=== PATIENT | male | born 1935 | race Caucasian/White ===

== ENCOUNTER 2020-07-18 21:47 | Inpatient (IN) ==
[2020-07-18 22:36] LABS: Basophils % 0.5 %; Eosinophils # 0.2 K/mcL (0.0-0.6); Eosinophils % 2.1 %; Hematocrit 43.8 % (37.5-50.1); Hemoglobin 14.2 g/dL (12.9-16.9); Immature Granulocytes % 0.2 % (0-4); Lymphocytes # 1.9 K/mcL (0.6-4.6); Lymphocytes % 23.3 %; Mean Corpuscular HGB Conc 32.4 g/dL (31.6-35.5); Mean Corpuscular Hemoglobin 31.6 pg (28.0-33.3); Mean Corpuscular Volume 97.6 fL (83.0-100.0); Mean Platelet Volume 10.6 fL (9.4-12.4); Monocytes # 0.7 K/mcL (0.0-1.3); Monocytes % 7.8 %; Neutrophils # 5.5 K/mcL (1.6-8.9); Platelet Count 232 K/mcL (140-400); Red Blood Count 4.49 M/mcL (4.19-5.50); Red Cell Distribution Width 12.9 % (11.5-14.5); Segmented Neutrophils % 66.1 %; White Blood Count 8.3 K/mcL (4.3-11.1)
[2020-07-18 22:51] LABS: Calcium 9.1 mg/dL (8.6-10.3); Potassium 4.2 mEq/L (3.5-5.1)
[2020-07-18 23:14] LABS: Bacteria,Urine Few per hpf (None-Few); Bilirubin,Urine Negative (Negative); Blood,Urine Trace (Negative); Clarity,Urine Clear (Clear); Color,Urine Yellow (Yellow); Glucose,Urine (UA) Normal (Normal); Hyaline Casts,Urine Few per lpf (None Seen); Ketones,Urine Trace mg/dL (Negative); Leukocyte Esterase,Urine Negative (Negative); Mucus,Urine Few per lpf (None-Few); Nitrite,Urine Negative (Negative); PH,Urine 5.5 pH Units (5.0-8.0); Protein,Urine Trace mg/dL (Neg-Trace); Specific Gravity,Urine 1.026 (1.010-1.025); Urobilinogen,Urine Normal (Normal); WBC,Urine 0-3 per hpf (0-3)
[2020-07-19] MEDS ORDERED: Naloxone 0.4 MG/ML INJ IVP PRN (01:12)
[2020-07-19 07:45] LABS: Hematocrit 40.8 % (37.5-50.1); Hemoglobin 13.7 g/dL (12.9-16.9); Mean Corpuscular HGB Conc 33.6 g/dL (31.6-35.5); Mean Corpuscular Hemoglobin 32.9 pg (28.0-33.3); Mean Corpuscular Volume 97.8 fL (83.0-100.0); Mean Platelet Volume 10.7 fL (9.4-12.4); Platelet Count 211 K/mcL (140-400); Red Blood Count 4.17 M/mcL (4.19-5.50); Red Cell Distribution Width 12.7 % (11.5-14.5); White Blood Count 6.1 K/mcL (4.3-11.1)
[2020-07-19] MEDS ORDERED: NIFEdipine XL (24 HR) 30 MG TAB.ER.24 PO SCH (09:00)
[2020-07-19 09:48] LABS: BUN/Creatinine Ratio 14 (6-26); Blood Urea Nitrogen 19 mg/dL (8-23); Calcium 8.8 mg/dL (8.6-10.3); Carbon Dioxide 23 mEq/L (23-29); Chloride 107 mEq/L (98-107); Glucose 88 mg/dL (70-105); Osmolality,Calculated 292 (280-300); Phosphorous 2.5 mg/dL (2.7-4.5); Potassium 3.9 mEq/L (3.5-5.1); Sodium 140 mEq/L (136-145); eGFR For African Americans > 60 (> 60); eGFR For Non-African Americans 52 (> 60)
[2020-07-19] MEDS ORDERED: Simethicone 40 MG/0.6 ML MLS IR ONE (14:43)
[2020-07-19] MEDS: 0.9 % Sodium Chloride 1,000 ML IVC SCH (16:22)
[2020-07-19] MEDS: amLODIPine 5 MG TABLET PO SCH (17:46)
[2020-07-19] MEDS: lisinopriL 10 MG TABLET PO SCH (17:46)
[2020-07-19] MEDS: *HR* Heparin 5,000 UNIT/ML VIAL SQ SCH (17:47)
[2020-07-20] MEDS: *HR* Heparin 5,000 UNIT/ML VIAL SQ SCH ×2 (06:46→15:58)
[2020-07-20] MEDS: amLODIPine 5 MG TABLET PO SCH ×2 (10:57→14:29)
[2020-07-20] MEDS: lisinopriL 10 MG TABLET PO SCH ×2 (10:57→14:28)
[2020-07-20] MEDS: 0.9 % Sodium Chloride 1,000 ML IVC SCH (15:59)
[2020-07-20 19:17] VITALS: BP 133/79
== END 2020-07-20 21:26 | DRG 392 ==
LOC: EMEROOARM 21:47 → 3NENU 21:47
PROVIDERS: ADMIT Internal Medicine; ATTEND Internal Medicine
PROC: ENDOEDS (2020-07-19 17:30)

== ENCOUNTER 2022-04-27 06:09 | Inpatient (IN) ==
[2022-04-27 08:10] LABS: Bilirubin,Urine Negative (Negative); Blood,Urine Negative (Negative); Clarity,Urine Clear (Clear); Color,Urine Light-Yellow (Yellow); Glucose,Urine (UA) Normal (Normal); Ketones,Urine Negative (Negative); Leukocyte Esterase,Urine Negative (Negative); Nitrite,Urine Negative (Negative); Protein,Urine Trace mg/dL (Neg-Trace); Specific Gravity,Urine 1.015 (1.010-1.025); Urobilinogen,Urine Normal (Normal)
[2022-04-27] MEDS ORDERED: *HR* HYDROmorphone (PF) 1 MG/ML SYRINGE IVP ONE (10:08)
[2022-04-27] MEDS ORDERED: cefTRIAXone 1,000 MG in 0.9 % Sodium Chloride 10 ML IVP ONE (10:43)
[2022-04-27] MEDS ORDERED: Naloxone 0.4 MG/ML INJ IVP PRN ×2 (11:50→17:05)
[2022-04-27] MEDS ORDERED: Ondansetron 4 MG/2 ML VIAL IVP PRN ×2 (11:50→17:05)
[2022-04-27] MEDS ORDERED: *HR* HYDROmorphone (PF) 1 MG/ML SYRINGE IVP PRN ×2 (11:53→12:36)
[2022-04-27 12:20] LABS: Basophils % 0.1 %; Hematocrit 46.8 % (37.5-50.1); Hemoglobin 15.5 g/dL (12.9-16.9); Immature Granulocytes % 0.5 % (0-4); Lymphocytes # 2.8 K/mcL (0.6-4.6); Lymphocytes % 20.5 %; Mean Corpuscular HGB Conc 33.1 g/dL (31.6-35.5); Mean Corpuscular Hemoglobin 32.4 pg (28.0-33.3); Mean Corpuscular Volume 97.7 fL (83.0-100.0); Mean Platelet Volume 10.7 fL (9.4-12.4); Monocytes # 1.3 K/mcL (0.0-1.3); Monocytes % 9.8 %; Neutrophils # 9.4 K/mcL (1.6-8.9); Platelet Count 260 K/mcL (140-400); Red Blood Count 4.79 M/mcL (4.19-5.50); Red Cell Distribution Width 12.5 % (11.5-14.5); Segmented Neutrophils % 69.1 %; White Blood Count 13.6 K/mcL (4.3-11.1)
[2022-04-27 12:35] LABS: Alanine Aminotransferase 67 Units/L (7-52); Albumin 3.9 g/dL (3.5-5.7); Albumin/Globulin Ratio 1.3 (1.1-2.2); Alkaline Phosphatase 54 Units/L (34-104); Aspartate Amino Transferase 35 Units/L (13-39); BUN/Creatinine Ratio 20 (6-26); Bilirubin,Total 1.2 mg/dL (0.3-1.0); Blood Urea Nitrogen 24 mg/dL (8-23); Calcium 9.2 mg/dL (8.6-10.3); Carbon Dioxide 28 mEq/L (23-29); Chloride 103 mEq/L (98-107); Globulin 2.9 g/dL (2.4-3.5); Glucose 84 mg/dL (70-105); Osmolality,Calculated 291 (280-300); Potassium 4.2 mEq/L (3.5-5.1); Sodium 139 mEq/L (136-145); Total Protein 6.8 g/dL (6.4-8.9); eGFR For African Americans > 60 (> 60); eGFR For Non-African Americans 58 (> 60)
[2022-04-27] MEDS ORDERED: Acetaminophen IV 1,000 MG/100 ML BAG IVPB ONE (12:36)
[2022-04-27] MEDS ORDERED: *HR* Labetalol 20 MG/4 ML SYRINGE IVP PRN (12:36)
[2022-04-27] MEDS ORDERED: Ketorolac 30 MG/ML VIAL IVP PRN (12:36)
[2022-04-27 13:40] LABS: INR 1.1; Prothrombin Time 11.8 Seconds (9.4-12.1)
[2022-04-27] MEDS ORDERED: *HR* Succinylcholine 200 MG/10 ML VIAL IVP ONE (13:56)
[2022-04-27] MEDS ORDERED: *HR* Propofol 200 MG/20 ML VIAL IVP ONE (13:56)
[2022-04-27] MEDS ORDERED: *HR* FentaNYL (PF) 100 MCG/2 ML VIAL ONE (13:56)
[2022-04-27] MEDS ORDERED: Ondansetron 4 MG/2 ML VIAL ONE (13:56)
[2022-04-27] MEDS ORDERED: Lidocaine -MPF 2% 5 ML VIAL ONE (13:56)
[2022-04-27] MEDS ORDERED: EPHEDrine 50 MG/ML VIAL ONE (14:45)
[2022-04-27] MEDS ORDERED: *HR* Heparin 5,000 UNIT/ML VIAL SQ SCH (18:00)
[2022-04-27] MEDS: *HR* Heparin 5,000 UNIT/ML VIAL SQ SCH (18:11)
[2022-04-28] MEDS: *HR* HYDROmorphone (PF) 1 MG/ML SYRINGE IVP PRN ×3 (01:40→17:23)
[2022-04-28] MEDS ORDERED: *HR* LORazepam 2 MG/ML VIAL IVP ONE (02:59)
[2022-04-28] MEDS: *HR* Heparin 5,000 UNIT/ML VIAL SQ SCH (05:03)
[2022-04-28] MEDS: Haloperidol Lactate 5 MG/ML VIAL IVP PRN ×2 (08:48→16:27)
[2022-04-28] MEDS ORDERED: cefTRIAXone 1,000 MG in 0.9 % Sodium Chloride 10 ML IVP SCH (09:00)
[2022-04-28] MEDS: Aspirin Enteric Coated 81 MG Tablet PO SCH (11:16)
[2022-04-28] MEDS: NIFEdipine XL (24 HR) 30 MG TAB.ER.24 PO SCH (11:16)
[2022-04-28] MEDS: cefTRIAXone 1,000 MG in 0.9 % Sodium Chloride 10 ML IVP SCH (11:17)
[2022-04-28] MEDS: Cholecalciferol (D-3) 1,000 UNIT (25MCG) TABLET PO SCH (11:17)
[2022-04-28] MEDS: QUEtiapine Fumarate 25 MG TABLET PO SCH ×2 (11:17→22:22)
[2022-04-29] MEDS: NIFEdipine XL (24 HR) 30 MG TAB.ER.24 PO SCH (08:34)
[2022-04-29] MEDS: QUEtiapine Fumarate 25 MG TABLET PO SCH ×2 (08:34→23:31)
[2022-04-29] MEDS: Aspirin Enteric Coated 81 MG Tablet PO SCH (08:34)
[2022-04-29] MEDS: Cholecalciferol (D-3) 1,000 UNIT (25MCG) TABLET PO SCH (08:35)
[2022-04-29] MEDS: cefTRIAXone 1,000 MG in 0.9 % Sodium Chloride 10 ML IVP SCH (08:35)
[2022-04-29 12:18] LABS: Basophils % 0.2 %; Eosinophils # 0.2 K/mcL (0.0-0.6); Hematocrit 41.9 % (37.5-50.1); Hemoglobin 14.2 g/dL (12.9-16.9); Immature Granulocytes % 0.4 % (0-4); Lymphocytes # 2.1 K/mcL (0.6-4.6); Lymphocytes % 19.1 %; Mean Corpuscular HGB Conc 33.9 g/dL (31.6-35.5); Mean Corpuscular Hemoglobin 32.7 pg (28.0-33.3); Mean Corpuscular Volume 96.5 fL (83.0-100.0); Mean Platelet Volume 10.6 fL (9.4-12.4); Monocytes # 1.2 K/mcL (0.0-1.3); Neutrophils # 7.6 K/mcL (1.6-8.9); Platelet Count 213 K/mcL (140-400); Red Blood Count 4.34 M/mcL (4.19-5.50); Red Cell Distribution Width 12.6 % (11.5-14.5); Segmented Neutrophils % 67.3 %; White Blood Count 11.2 K/mcL (4.3-11.1)
[2022-04-29 12:41] LABS: BUN/Creatinine Ratio 26 (6-26); Blood Urea Nitrogen 31 mg/dL (8-23); Calcium 8.4 mg/dL (8.6-10.3); Carbon Dioxide 24 mEq/L (23-29); Chloride 101 mEq/L (98-107); Glucose 82 mg/dL (70-105); Osmolality,Calculated 282 (280-300); Phosphorous 3.4 mg/dL (2.7-4.5); Sodium 133 mEq/L (136-145); Troponin I 0.04 ng/mL (< 0.04); eGFR For African Americans > 60 (> 60); eGFR For Non-African Americans 57 (> 60)
[2022-04-29 13:19] LABS: Magnesium 1.9 mg/dL (1.6-2.6)
[2022-04-29] MEDS: Haloperidol Lactate 5 MG/ML VIAL IVP PRN (13:45)
[2022-04-29] MEDS: *HR* HYDROmorphone (PF) 1 MG/ML SYRINGE IVP PRN (20:32)
[2022-04-30] MEDS: *HR* HYDROmorphone (PF) 1 MG/ML SYRINGE IVP PRN ×4 (00:43→21:33)
[2022-04-30] MEDS: Haloperidol Lactate 5 MG/ML VIAL IVP PRN ×2 (08:10→14:11)
[2022-04-30] MEDS: cefTRIAXone 1,000 MG in 0.9 % Sodium Chloride 10 ML IVP SCH (08:12)
[2022-04-30] MEDS: Aspirin Enteric Coated 81 MG Tablet PO SCH (08:15)
[2022-04-30] MEDS: NIFEdipine XL (24 HR) 30 MG TAB.ER.24 PO SCH (08:15)
[2022-04-30] MEDS: QUEtiapine Fumarate 25 MG TABLET PO SCH ×2 (08:15→21:34)
[2022-04-30] MEDS: Cholecalciferol (D-3) 1,000 UNIT (25MCG) TABLET PO SCH (08:16)
[2022-04-30] MEDS ORDERED: Vancomycin 1,500 MG/265 ML IV.SOLN IVPB SCH (11:00)
[2022-04-30] MEDS: Piperacillin/Tazobactam 3.375 GM in 0.9 % Sodium Chloride Mini Bag 100 ML IVPB SCH ×2 (11:53→21:33)
[2022-04-30 12:51] LABS: Basophils % 0.3 %; Eosinophils # 0.3 K/mcL (0.0-0.6); Eosinophils % 2.5 %; Hematocrit 46.2 % (37.5-50.1); Hemoglobin 15.2 g/dL (12.9-16.9); Immature Granulocytes % 0.5 % (0-4); Lymphocytes # 1.9 K/mcL (0.6-4.6); Lymphocytes % 16.3 %; Mean Corpuscular HGB Conc 32.9 g/dL (31.6-35.5); Mean Corpuscular Hemoglobin 32.5 pg (28.0-33.3); Mean Corpuscular Volume 98.7 fL (83.0-100.0); Mean Platelet Volume 10.6 fL (9.4-12.4); Monocytes # 1.3 K/mcL (0.0-1.3); Monocytes % 11.4 %; Neutrophils # 8.1 K/mcL (1.6-8.9); Platelet Count 188 K/mcL (140-400); Red Blood Count 4.68 M/mcL (4.19-5.50); Red Cell Distribution Width 12.6 % (11.5-14.5); White Blood Count 11.8 K/mcL (4.3-11.1)
[2022-04-30 12:53] LABS: Bilirubin,Urine Negative (Negative); Blood,Urine Large (Negative); Clarity,Urine Ex.Turbid (Clear); Color,Urine Brown (Yellow); Glucose,Urine (UA) Normal (Normal); Ketones,Urine 40 mg/dL (Negative); Leukocyte Esterase,Urine Small (Negative); Nitrite,Urine Negative (Negative); Protein,Urine 200 mg/dL (Neg-Trace); Specific Gravity,Urine 1.023 (1.010-1.025); Urobilinogen,Urine Normal (Normal)
[2022-04-30] MEDS: Vancomycin 1,250 MG/262.5 ML IV.SOLN IVPB SCH (12:59)
[2022-04-30 13:09] LABS: RBC,Urine TNTC per hpf (0-3)
[2022-04-30 13:13] LABS: Bacteria,Urine Present per hpf (None-Few); Budding Yeast,Urine Present per hpf (None Seen); WBC,Urine Present per hpf (0-3)
[2022-04-30 13:21] LABS: Alanine Aminotransferase 31 Units/L (7-52); Albumin 3.6 g/dL (3.5-5.7); Albumin/Globulin Ratio 1.5 (1.1-2.2); Alkaline Phosphatase 53 Units/L (34-104); Aspartate Amino Transferase 31 Units/L (13-39); BUN/Creatinine Ratio 30 (6-26); Bilirubin,Total 1.1 mg/dL (0.3-1.0); Blood Urea Nitrogen 34 mg/dL (8-23); Calcium 8.7 mg/dL (8.6-10.3); Carbon Dioxide 23 mEq/L (23-29); Chloride 101 mEq/L (98-107); Globulin 2.4 g/dL (2.4-3.5); Glucose 81 mg/dL (70-105); Osmolality,Calculated 289 (280-300); Sodium 136 mEq/L (136-145); eGFR For African Americans > 60 (> 60); eGFR For Non-African Americans > 60 (> 60)
[2022-04-30] MEDS ORDERED: Perflutren Lipid Microsphere 1.3 ML in 0.9 % Sodium Chloride 8.7 ML IVP PRN (14:17)
[2022-04-30] MEDS: Fluconazole 100 MG TABLET PO SCH (15:15)
[2022-04-30 16:55] LABS: Creatine Kinase 226 Units/L (30-223)
[2022-05-01] MEDS ORDERED: Haloperidol Lactate 5 MG/ML VIAL IM ONE (02:04)
[2022-05-01] MEDS ORDERED: *HR* HYDROmorphone (PF) 1 MG/ML SYRINGE IM ONE (02:29)
[2022-05-01] MEDS: Piperacillin/Tazobactam 3.375 GM in 0.9 % Sodium Chloride Mini Bag 100 ML IVPB SCH ×3 (03:45→17:57)
[2022-05-01] MEDS: Haloperidol Lactate 5 MG/ML VIAL IVP PRN ×2 (03:46→15:04)
[2022-05-01] MEDS ORDERED: NIFEdipine XL (24 HR) 30 MG TAB.ER.24 PO SCH (09:00)
[2022-05-01] MEDS: QUEtiapine Fumarate 25 MG TABLET PO SCH ×3 (09:59→22:41)
[2022-05-01] MEDS: Fluconazole 100 MG TABLET PO SCH (10:07)
[2022-05-01] MEDS: Cholecalciferol (D-3) 1,000 UNIT (25MCG) TABLET PO SCH (10:07)
[2022-05-01] MEDS: Aspirin Enteric Coated 81 MG Tablet PO SCH (10:16)
[2022-05-01] MEDS ORDERED: Fluconazole 100 MG TABLET PO SCH (10:30)
[2022-05-01] MEDS: Vancomycin 1,250 MG/262.5 ML IV.SOLN IVPB SCH (12:12)
[2022-05-01 13:28] LABS: Basophils % 0.1 %; Eosinophils # 0.2 K/mcL (0.0-0.6); Eosinophils % 1.4 %; Hematocrit 41.3 % (37.5-50.1); Hemoglobin 13.7 g/dL (12.9-16.9); Immature Granulocytes % 0.5 % (0-4); Lymphocytes # 1.3 K/mcL (0.6-4.6); Lymphocytes % 10.7 %; Mean Corpuscular HGB Conc 33.2 g/dL (31.6-35.5); Mean Corpuscular Hemoglobin 32.5 pg (28.0-33.3); Mean Corpuscular Volume 98.1 fL (83.0-100.0); Mean Platelet Volume 10.5 fL (9.4-12.4); Monocytes # 1.2 K/mcL (0.0-1.3); Monocytes % 9.7 %; Neutrophils # 9.3 K/mcL (1.6-8.9); Platelet Count 200 K/mcL (140-400); Red Blood Count 4.21 M/mcL (4.19-5.50); Red Cell Distribution Width 12.6 % (11.5-14.5); Segmented Neutrophils % 77.6 %
[2022-05-01 14:01] LABS: Calcium 8.4 mg/dL (8.6-10.3); Potassium 4.1 mEq/L (3.5-5.1)
[2022-05-01 14:08] LABS: Thyroid Stimulating Hormone 0.713 mcIU/mL (0.340-5.600); Troponin I 0.05 ng/mL (< 0.04)
[2022-05-01] MEDS: *HR* Heparin 5,000 UNIT/ML VIAL SQ SCH (17:56)
[2022-05-01] MEDS: *HR* HYDROmorphone (PF) 1 MG/ML SYRINGE IVP PRN (17:57)
[2022-05-01] MEDS: 0.9 % Sodium Chloride 1,000 ML IVC SCH (18:11)
[2022-05-01 19:04] LABS: Folate 12.9 ng/mL (3.0-16.0)
[2022-05-01] MEDS: Thiamine (B-1) 100 MG in 0.9 % Sodium Chloride 50 ML IVPB SCH (20:54)
[2022-05-02] MEDS: Piperacillin/Tazobactam 3.375 GM in 0.9 % Sodium Chloride Mini Bag 100 ML IVPB SCH ×2 (02:10→11:55)
[2022-05-02 03:36] LABS: Basophils % 0.3 %; Eosinophils # 0.3 K/mcL (0.0-0.6); Eosinophils % 3.1 %; Hematocrit 41.7 % (37.5-50.1); Hemoglobin 13.6 g/dL (12.9-16.9); Immature Granulocytes % 0.5 % (0-4); Lymphocytes # 1.1 K/mcL (0.6-4.6); Lymphocytes % 9.9 %; Mean Corpuscular HGB Conc 32.6 g/dL (31.6-35.5); Mean Corpuscular Volume 98.1 fL (83.0-100.0); Mean Platelet Volume 10.4 fL (9.4-12.4); Monocytes # 1.2 K/mcL (0.0-1.3); Monocytes % 11.3 %; Neutrophils # 8.1 K/mcL (1.6-8.9); Platelet Count 199 K/mcL (140-400); Red Blood Count 4.25 M/mcL (4.19-5.50); Red Cell Distribution Width 12.5 % (11.5-14.5); Segmented Neutrophils % 74.9 %; White Blood Count 10.8 K/mcL (4.3-11.1)
[2022-05-02 03:55] LABS: Calcium 8.3 mg/dL (8.6-10.3); Potassium 4.2 mEq/L (3.5-5.1)
[2022-05-02] MEDS: Haloperidol Lactate 5 MG/ML VIAL IVP PRN ×2 (04:03→11:54)
[2022-05-02] MEDS: *HR* Heparin 5,000 UNIT/ML VIAL SQ SCH ×2 (04:06→16:07)
[2022-05-02] MEDS: 0.9 % Sodium Chloride 1,000 ML IVC SCH (07:49)
[2022-05-02] MEDS: *HR* HYDROmorphone (PF) 1 MG/ML SYRINGE IVP PRN ×2 (07:52→16:07)
[2022-05-02] MEDS: Aspirin Enteric Coated 81 MG Tablet PO SCH (07:52)
[2022-05-02] MEDS: QUEtiapine Fumarate 25 MG TABLET PO SCH ×3 (07:52→20:51)
[2022-05-02] MEDS: NIFEdipine XL (24 HR) 30 MG TAB.ER.24 PO SCH (07:52)
[2022-05-02] MEDS: Cholecalciferol (D-3) 1,000 UNIT (25MCG) TABLET PO SCH (07:52)
[2022-05-02] MEDS: Thiamine (B-1) 100 MG in 0.9 % Sodium Chloride 50 ML IVPB SCH ×2 (08:06→21:13)
[2022-05-03] MEDS: *HR* Heparin 5,000 UNIT/ML VIAL SQ SCH ×2 (06:10→17:51)
[2022-05-03 06:37] LABS: Basophils % 0.2 %; Eosinophils # 0.2 K/mcL (0.0-0.6); Eosinophils % 1.9 %; Hematocrit 39.1 % (37.5-50.1); Hemoglobin 12.8 g/dL (12.9-16.9); Immature Granulocytes % 0.4 % (0-4); Lymphocytes % 8.2 %; Mean Corpuscular HGB Conc 32.7 g/dL (31.6-35.5); Mean Corpuscular Hemoglobin 32.2 pg (28.0-33.3); Mean Corpuscular Volume 98.5 fL (83.0-100.0); Mean Platelet Volume 10.5 fL (9.4-12.4); Monocytes # 1.2 K/mcL (0.0-1.3); Monocytes % 9.8 %; Platelet Count 192 K/mcL (140-400); Red Blood Count 3.97 M/mcL (4.19-5.50); Red Cell Distribution Width 12.8 % (11.5-14.5); Segmented Neutrophils % 79.5 %; White Blood Count 12.5 K/mcL (4.3-11.1)
[2022-05-03 06:58] LABS: Calcium 8.6 mg/dL (8.6-10.3); Potassium 3.8 mEq/L (3.5-5.1)
[2022-05-03] MEDS: Aspirin Enteric Coated 81 MG Tablet PO SCH (09:41)
[2022-05-03] MEDS: Cholecalciferol (D-3) 1,000 UNIT (25MCG) TABLET PO SCH (09:42)
[2022-05-03] MEDS: QUEtiapine Fumarate 25 MG TABLET PO SCH ×2 (09:42→21:09)
[2022-05-03] MEDS: NIFEdipine XL (24 HR) 30 MG TAB.ER.24 PO SCH (09:42)
[2022-05-03] MEDS: 0.9 % Sodium Chloride 1,000 ML IVC SCH ×2 (09:45→19:28)
[2022-05-03] MEDS: Thiamine (B-1) 100 MG in 0.9 % Sodium Chloride 50 ML IVPB SCH ×2 (10:00→21:09)
[2022-05-03] MEDS ORDERED: QUEtiapine Fumarate 25 MG TABLET PO SCH ×2 (15:00→21:00)
[2022-05-04 01:37] LABS: Basophils % 0.2 %; Eosinophils # 0.2 K/mcL (0.0-0.6); Hematocrit 36.1 % (37.5-50.1); Hemoglobin 11.8 g/dL (12.9-16.9); Immature Granulocytes % 0.4 % (0-4); Lymphocytes # 1.1 K/mcL (0.6-4.6); Lymphocytes % 11.8 %; Mean Corpuscular HGB Conc 32.7 g/dL (31.6-35.5); Mean Corpuscular Hemoglobin 32.5 pg (28.0-33.3); Mean Corpuscular Volume 99.4 fL (83.0-100.0); Mean Platelet Volume 9.9 fL (9.4-12.4); Monocytes # 0.9 K/mcL (0.0-1.3); Monocytes % 9.9 %; Neutrophils # 7.2 K/mcL (1.6-8.9); Platelet Count 159 K/mcL (140-400); Red Blood Count 3.63 M/mcL (4.19-5.50); Red Cell Distribution Width 12.7 % (11.5-14.5); Segmented Neutrophils % 75.7 %; White Blood Count 9.5 K/mcL (4.3-11.1)
[2022-05-04 02:34] LABS: BUN/Creatinine Ratio 38 (6-26); Blood Urea Nitrogen 46 mg/dL (8-23); Calcium 8.1 mg/dL (8.6-10.3); Carbon Dioxide 21 mEq/L (23-29); Chloride 110 mEq/L (98-107); Glucose 100 mg/dL (70-105); Osmolality,Calculated 298 (280-300); Potassium 3.6 mEq/L (3.5-5.1); Sodium 138 mEq/L (136-145); eGFR For African Americans > 60 (> 60); eGFR For Non-African Americans 57 (> 60)
[2022-05-04] MEDS: *HR* HYDROmorphone (PF) 1 MG/ML SYRINGE IVP PRN (02:39)
[2022-05-04] MEDS: Saliva Stimulant 44.3ml BOTTLE PO PRN (02:42)
[2022-05-04] MEDS: *HR* Heparin 5,000 UNIT/ML VIAL SQ SCH ×2 (05:16→17:20)
[2022-05-04] MEDS: QUEtiapine Fumarate 25 MG TABLET PO SCH ×2 (09:47→20:30)
[2022-05-04] MEDS: Cholecalciferol (D-3) 1,000 UNIT (25MCG) TABLET PO SCH (09:47)
[2022-05-04] MEDS: Aspirin Enteric Coated 81 MG Tablet PO SCH (09:47)
[2022-05-04] MEDS: Thiamine (B-1) 100 MG in 0.9 % Sodium Chloride 50 ML IVPB SCH (10:27)
[2022-05-04] MEDS ORDERED: Perflutren Lipid Microsphere 1.3 ML in 0.9 % Sodium Chloride 8.7 ML IVP PRN (12:06)
[2022-05-04] MEDS: Thiamine (B-1) 100 MG TABLET PO SCH (20:30)
[2022-05-04] MEDS: NETARSUDIL OP SCH (20:35)
[2022-05-04] MEDS: LATANOPROST OP SCH (20:35)
[2022-05-05 03:35] LABS: Basophils % 0.2 %; Eosinophils # 0.2 K/mcL (0.0-0.6); Eosinophils % 1.7 %; Hematocrit 38.2 % (37.5-50.1); Hemoglobin 12.5 g/dL (12.9-16.9); Immature Granulocytes % 0.4 % (0-4); Lymphocytes # 1.2 K/mcL (0.6-4.6); Lymphocytes % 10.5 %; Mean Corpuscular HGB Conc 32.7 g/dL (31.6-35.5); Mean Corpuscular Hemoglobin 32.6 pg (28.0-33.3); Mean Corpuscular Volume 99.5 fL (83.0-100.0); Mean Platelet Volume 10.6 fL (9.4-12.4); Monocytes # 1.1 K/mcL (0.0-1.3); Monocytes % 10.2 %; Neutrophils # 8.6 K/mcL (1.6-8.9); Platelet Count 192 K/mcL (140-400); Red Blood Count 3.84 M/mcL (4.19-5.50); Red Cell Distribution Width 12.8 % (11.5-14.5); White Blood Count 11.2 K/mcL (4.3-11.1)
[2022-05-05] MEDS: *HR* HYDROmorphone (PF) 1 MG/ML SYRINGE IVP PRN (05:16)
[2022-05-05] MEDS: *HR* Heparin 5,000 UNIT/ML VIAL SQ SCH ×2 (05:17→17:45)
[2022-05-05 05:25] LABS: BUN/Creatinine Ratio 35 (6-26); Blood Urea Nitrogen 35 mg/dL (8-23); Calcium 8.4 mg/dL (8.6-10.3); Carbon Dioxide 23 mEq/L (23-29); Chloride 108 mEq/L (98-107); Glucose 107 mg/dL (70-105); Magnesium 1.8 mg/dL (1.6-2.6); Osmolality,Calculated 296 (280-300); Potassium 3.8 mEq/L (3.5-5.1); Sodium 139 mEq/L (136-145); eGFR For African Americans > 60 (> 60); eGFR For Non-African Americans > 60 (> 60)
[2022-05-05] MEDS ORDERED: Calcium Gluconate 1gm/50mL 1 GM/50 ML BAG IVPB ONE (07:11)
[2022-05-05] MEDS: Aspirin Enteric Coated 81 MG Tablet PO SCH (10:23)
[2022-05-05] MEDS: QUEtiapine Fumarate 25 MG TABLET PO SCH ×2 (10:23→20:17)
[2022-05-05] MEDS: Magnesium Oxide 400 MG TABLET PO SCH (10:23)
[2022-05-05] MEDS: NIFEdipine XL (24 HR) 30 MG TAB.ER.24 PO SCH (10:23)
[2022-05-05] MEDS: Thiamine (B-1) 100 MG TABLET PO SCH ×2 (10:23→20:17)
[2022-05-05] MEDS: Cholecalciferol (D-3) 1,000 UNIT (25MCG) TABLET PO SCH (10:23)
[2022-05-05] MEDS: Haloperidol Lactate 5 MG/ML VIAL IVP PRN (15:27)
[2022-05-05] MEDS: NETARSUDIL OP SCH (20:33)
[2022-05-05] MEDS: LATANOPROST OP SCH (20:33)
[2022-05-06] MEDS: *HR* Heparin 5,000 UNIT/ML VIAL SQ SCH ×2 (05:29→16:27)
[2022-05-06 10:04] LABS: Basophils % 0.1 %; Eosinophils # 0.1 K/mcL (0.0-0.6); Eosinophils % 1.3 %; Hematocrit 36.8 % (37.5-50.1); Hemoglobin 12.2 g/dL (12.9-16.9); Immature Granulocytes % 0.4 % (0-4); Lymphocytes # 1.2 K/mcL (0.6-4.6); Lymphocytes % 12.7 %; Mean Corpuscular HGB Conc 33.2 g/dL (31.6-35.5); Mean Corpuscular Hemoglobin 32.1 pg (28.0-33.3); Mean Corpuscular Volume 96.8 fL (83.0-100.0); Mean Platelet Volume 10.4 fL (9.4-12.4); Monocytes # 0.8 K/mcL (0.0-1.3); Monocytes % 8.6 %; Neutrophils # 7.2 K/mcL (1.6-8.9); Platelet Count 163 K/mcL (140-400); Red Cell Distribution Width 12.3 % (11.5-14.5); Segmented Neutrophils % 76.9 %; White Blood Count 9.3 K/mcL (4.3-11.1)
[2022-05-06 10:05] LABS: VBG Ionized Calcium 1.18 mmol/L (1.15-1.35)
[2022-05-06 10:20] LABS: BUN/Creatinine Ratio 26 (6-26); Blood Urea Nitrogen 26 mg/dL (8-23); Calcium 8.2 mg/dL (8.6-10.3); Carbon Dioxide 28 mEq/L (23-29); Chloride 105 mEq/L (98-107); Glucose 92 mg/dL (70-105); Osmolality,Calculated 288 (280-300); Potassium 3.8 mEq/L (3.5-5.1); Sodium 137 mEq/L (136-145); eGFR For African Americans > 60 (> 60); eGFR For Non-African Americans > 60 (> 60)
[2022-05-06] MEDS: NIFEdipine XL (24 HR) 30 MG TAB.ER.24 PO SCH (11:49)
[2022-05-06] MEDS: Thiamine (B-1) 100 MG TABLET PO SCH ×2 (11:49→21:57)
[2022-05-06] MEDS: Magnesium Oxide 400 MG TABLET PO SCH (11:49)
[2022-05-06] MEDS: Cholecalciferol (D-3) 1,000 UNIT (25MCG) TABLET PO SCH (11:49)
[2022-05-06] MEDS: Aspirin 81 MG TAB.CHEW PO SCH (11:50)
[2022-05-06] MEDS: Aspirin Enteric Coated 81 MG Tablet PO SCH (11:51)
[2022-05-06] MEDS: QUEtiapine Fumarate 25 MG TABLET PO SCH (11:51)
[2022-05-06] MEDS ORDERED: 0.9 % Sodium Chloride 1,000 ML IVC SCH (12:30)
[2022-05-06] MEDS ORDERED: QUEtiapine Fumarate 25 MG TABLET PO SCH (21:00)
[2022-05-06] MEDS: LATANOPROST OP SCH (22:01)
[2022-05-06] MEDS: NETARSUDIL OP SCH (22:01)
[2022-05-07] MEDS: *HR* Heparin 5,000 UNIT/ML VIAL SQ SCH ×2 (03:01→16:19)
[2022-05-07] MEDS: *HR* HYDROmorphone (PF) 1 MG/ML SYRINGE IVP PRN (03:18)
[2022-05-07 08:11] LABS: Basophils % 0.2 %; Eosinophils % 2.1 %; Hematocrit 37.5 % (37.5-50.1); Hemoglobin 12.3 g/dL (12.9-16.9); Immature Granulocytes % 0.2 % (0-4); Lymphocytes # 1.4 K/mcL (0.6-4.6); Lymphocytes % 14.9 %; Mean Corpuscular HGB Conc 32.8 g/dL (31.6-35.5); Mean Corpuscular Hemoglobin 32.1 pg (28.0-33.3); Mean Corpuscular Volume 97.9 fL (83.0-100.0); Mean Platelet Volume 10.2 fL (9.4-12.4); Monocytes % 10.7 %; Neutrophils # 6.9 K/mcL (1.6-8.9); Platelet Count 164 K/mcL (140-400); Red Blood Count 3.83 M/mcL (4.19-5.50); Red Cell Distribution Width 12.6 % (11.5-14.5); Segmented Neutrophils % 71.9 %; White Blood Count 9.5 K/mcL (4.3-11.1)
[2022-05-07 08:12] LABS: Eosinophils # 0.2 K/mcL (0.0-0.6)
[2022-05-07 08:32] LABS: BUN/Creatinine Ratio 24 (6-26); Blood Urea Nitrogen 23 mg/dL (8-23); Calcium 8.1 mg/dL (8.6-10.3); Carbon Dioxide 27 mEq/L (23-29); Chloride 106 mEq/L (98-107); Glucose 96 mg/dL (70-105); Osmolality,Calculated 288 (280-300); Potassium 3.7 mEq/L (3.5-5.1); Sodium 137 mEq/L (136-145); eGFR For African Americans > 60 (> 60); eGFR For Non-African Americans > 60 (> 60)
[2022-05-07] MEDS: NIFEdipine XL (24 HR) 30 MG TAB.ER.24 PO SCH (10:17)
[2022-05-07] MEDS: Aspirin 81 MG TAB.CHEW PO SCH (10:17)
[2022-05-07] MEDS: Cholecalciferol (D-3) 1,000 UNIT (25MCG) TABLET PO SCH (10:17)
[2022-05-07] MEDS: Thiamine (B-1) 100 MG TABLET PO SCH ×2 (10:17→21:01)
[2022-05-07] MEDS: Magnesium Oxide 400 MG TABLET PO SCH (10:22)
[2022-05-07] MEDS: *HR* HYDROcodone/Acet 5/325 mg TABLET PO PRN (14:00)
[2022-05-07] MEDS: LATANOPROST OP SCH (20:59)
[2022-05-07] MEDS: NETARSUDIL OP SCH (20:59)
[2022-05-07] MEDS ORDERED: QUEtiapine Fumarate 25 MG TABLET PO SCH (21:00)
[2022-05-07] MEDS: Saliva Stimulant 44.3ml BOTTLE PO PRN (21:02)
[2022-05-08] MEDS: *HR* Heparin 5,000 UNIT/ML VIAL SQ SCH ×2 (05:09→17:13)
[2022-05-08] MEDS: Thiamine (B-1) 100 MG TABLET PO SCH ×2 (09:05→21:49)
[2022-05-08] MEDS: Magnesium Oxide 400 MG TABLET PO SCH (09:05)
[2022-05-08] MEDS: NIFEdipine XL (24 HR) 30 MG TAB.ER.24 PO SCH (09:05)
[2022-05-08] MEDS: Aspirin 81 MG TAB.CHEW PO SCH (09:06)
[2022-05-08] MEDS: Cholecalciferol (D-3) 1,000 UNIT (25MCG) TABLET PO SCH (09:06)
[2022-05-08] MEDS: *HR* HYDROcodone/Acet 5/325 mg TABLET PO PRN (10:29)
[2022-05-08] MEDS: NETARSUDIL OP SCH (21:51)
[2022-05-08] MEDS: LATANOPROST OP SCH (21:51)
[2022-05-09] MEDS: *HR* Heparin 5,000 UNIT/ML VIAL SQ SCH ×2 (05:58→16:59)
[2022-05-09] MEDS: Magnesium Oxide 400 MG TABLET PO SCH (09:32)
[2022-05-09] MEDS: Thiamine (B-1) 100 MG TABLET PO SCH ×2 (09:32→22:19)
[2022-05-09] MEDS: Aspirin 81 MG TAB.CHEW PO SCH (09:32)
[2022-05-09] MEDS: Cholecalciferol (D-3) 1,000 UNIT (25MCG) TABLET PO SCH (09:32)
[2022-05-09] MEDS: NIFEdipine XL (24 HR) 30 MG TAB.ER.24 PO SCH (09:32)
[2022-05-09 15:12] LABS: Adenovirus Not Detected (Not Detect); Bordetella Pertussis Not Detected (Not Detect); Chlamydophila pneumoniae Not Detected (Not Detect); Coronavirus 229E Not Detected (Not Detect); Coronavirus HKU1 Not Detected (Not Detect); Coronavirus NL63 Not Detected (Not Detect); Coronavirus OC43 Not Detected (Not Detect); Human Metapneumovirus Not Detected (Not Detect); Human Rhinovirus/Enterovirus Not Detected (Not Detect); Influenza A Subtype 2009 H1 Not Detected (Not Detect); Influenza B Not Detected (Not Detect); Mycoplasma pneumoniae Not Detected (Not Detect); Parainfluenza Virus 1 Not Detected (Not Detect); Parainfluenza Virus 2 Not Detected (Not Detect); Parainfluenza Virus 3 Not Detected (Not Detect); Parainfluenza Virus 4 Not Detected (Not Detect); Respiratory Syncytial Virus Not Detected (Not Detect)
[2022-05-09 15:15] LABS: SARS-CoV-2 DETECTED (Not Detect)
[2022-05-09] MEDS: LATANOPROST OP SCH (22:20)
[2022-05-09] MEDS: NETARSUDIL OP SCH (22:20)
[2022-05-10] MEDS: *HR* Heparin 5,000 UNIT/ML VIAL SQ SCH ×2 (06:44→17:25)
[2022-05-10] MEDS: Magnesium Oxide 400 MG TABLET PO SCH (10:05)
[2022-05-10] MEDS: Thiamine (B-1) 100 MG TABLET PO SCH ×2 (10:05→19:59)
[2022-05-10] MEDS: Cholecalciferol (D-3) 1,000 UNIT (25MCG) TABLET PO SCH (10:05)
[2022-05-10] MEDS: Aspirin 81 MG TAB.CHEW PO SCH (10:05)
[2022-05-10] MEDS: NIFEdipine XL (24 HR) 30 MG TAB.ER.24 PO SCH (10:05)
[2022-05-10] MEDS: *HR* HYDROcodone/Acet 5/325 mg TABLET PO PRN (19:59)
[2022-05-10] MEDS: NETARSUDIL OP SCH (20:01)
[2022-05-10] MEDS: LATANOPROST OP SCH (20:01)
[2022-05-11] MEDS: *HR* HYDROcodone/Acet 5/325 mg TABLET PO PRN ×2 (02:15→09:32)
[2022-05-11] MEDS: *HR* Heparin 5,000 UNIT/ML VIAL SQ SCH ×2 (06:15→17:26)
[2022-05-11] MEDS: Thiamine (B-1) 100 MG TABLET PO SCH ×2 (09:32→22:40)
[2022-05-11] MEDS: Aspirin 81 MG TAB.CHEW PO SCH (09:32)
[2022-05-11] MEDS: NIFEdipine XL (24 HR) 30 MG TAB.ER.24 PO SCH (09:32)
[2022-05-11] MEDS: Magnesium Oxide 400 MG TABLET PO SCH (09:32)
[2022-05-11] MEDS: Cholecalciferol (D-3) 1,000 UNIT (25MCG) TABLET PO SCH (09:32)
[2022-05-11] MEDS ORDERED: traZODone 50 MG TABLET PO PRN (10:58)
[2022-05-11] MEDS: LATANOPROST OP SCH (22:40)
[2022-05-11] MEDS: NETARSUDIL OP SCH (22:40)
[2022-05-12] MEDS: *HR* Heparin 5,000 UNIT/ML VIAL SQ SCH ×2 (04:58→17:39)
[2022-05-12] MEDS: NIFEdipine XL (24 HR) 30 MG TAB.ER.24 PO SCH (09:38)
[2022-05-12] MEDS: Cholecalciferol (D-3) 1,000 UNIT (25MCG) TABLET PO SCH (09:38)
[2022-05-12] MEDS: Magnesium Oxide 400 MG TABLET PO SCH (09:38)
[2022-05-12] MEDS: Aspirin 81 MG TAB.CHEW PO SCH (09:38)
[2022-05-12] MEDS: Thiamine (B-1) 100 MG TABLET PO SCH ×2 (09:38→21:58)
[2022-05-12] MEDS: NETARSUDIL OP SCH (21:58)
[2022-05-12] MEDS: LATANOPROST OP SCH (21:58)
[2022-05-13] MEDS: *HR* Heparin 5,000 UNIT/ML VIAL SQ SCH ×2 (06:50→17:34)
[2022-05-13] MEDS: NIFEdipine XL (24 HR) 30 MG TAB.ER.24 PO SCH ×2 (09:30→09:50)
[2022-05-13] MEDS: Thiamine (B-1) 100 MG TABLET PO SCH ×2 (09:30→20:11)
[2022-05-13] MEDS: Cholecalciferol (D-3) 1,000 UNIT (25MCG) TABLET PO SCH (09:30)
[2022-05-13] MEDS: Aspirin 81 MG TAB.CHEW PO SCH (09:31)
[2022-05-13] MEDS: Magnesium Oxide 400 MG TABLET PO SCH (09:31)
[2022-05-13] MEDS: amLODIPine 5 MG TABLET PO SCH (11:35)
[2022-05-13] MEDS: NETARSUDIL OP SCH (20:11)
[2022-05-13] MEDS: LATANOPROST OP SCH (20:11)
[2022-05-14] MEDS: *HR* Heparin 5,000 UNIT/ML VIAL SQ SCH ×2 (04:45→17:02)
[2022-05-14] MEDS: amLODIPine 5 MG TABLET PO SCH (09:13)
[2022-05-14] MEDS: Magnesium Oxide 400 MG TABLET PO SCH (09:13)
[2022-05-14] MEDS: Thiamine (B-1) 100 MG TABLET PO SCH ×2 (09:13→19:46)
[2022-05-14] MEDS: Cholecalciferol (D-3) 1,000 UNIT (25MCG) TABLET PO SCH (09:13)
[2022-05-14] MEDS: Aspirin 81 MG TAB.CHEW PO SCH (09:13)
[2022-05-14] MEDS: NETARSUDIL OP SCH (19:47)
[2022-05-14] MEDS: LATANOPROST OP SCH (19:47)
[2022-05-15] MEDS: *HR* Heparin 5,000 UNIT/ML VIAL SQ SCH ×2 (05:07→16:50)
[2022-05-15] MEDS: Magnesium Oxide 400 MG TABLET PO SCH (09:01)
[2022-05-15] MEDS: Thiamine (B-1) 100 MG TABLET PO SCH ×2 (09:02→21:42)
[2022-05-15] MEDS: Aspirin 81 MG TAB.CHEW PO SCH (09:02)
[2022-05-15] MEDS: amLODIPine 5 MG TABLET PO SCH (09:02)
[2022-05-15] MEDS: Cholecalciferol (D-3) 1,000 UNIT (25MCG) TABLET PO SCH (09:02)
[2022-05-15] MEDS: NETARSUDIL OP SCH (21:40)
[2022-05-15] MEDS: LATANOPROST OP SCH (21:40)
[2022-05-16] MEDS: *HR* Heparin 5,000 UNIT/ML VIAL SQ SCH ×2 (05:33→18:38)
[2022-05-16] MEDS: Magnesium Oxide 400 MG TABLET PO SCH (10:25)
[2022-05-16] MEDS: Cholecalciferol (D-3) 1,000 UNIT (25MCG) TABLET PO SCH (10:25)
[2022-05-16] MEDS: amLODIPine 5 MG TABLET PO SCH (10:25)
[2022-05-16] MEDS: Aspirin 81 MG TAB.CHEW PO SCH (10:25)
[2022-05-16] MEDS: Thiamine (B-1) 100 MG TABLET PO SCH ×2 (10:25→19:52)
[2022-05-16] MEDS: LATANOPROST OP SCH (19:54)
[2022-05-16] MEDS: NETARSUDIL OP SCH (19:54)
[2022-05-17] MEDS: *HR* Heparin 5,000 UNIT/ML VIAL SQ SCH ×2 (07:12→18:09)
[2022-05-17] MEDS: amLODIPine 5 MG TABLET PO SCH (08:04)
[2022-05-17] MEDS: Thiamine (B-1) 100 MG TABLET PO SCH ×2 (08:04→21:08)
[2022-05-17] MEDS: Aspirin 81 MG TAB.CHEW PO SCH (08:04)
[2022-05-17] MEDS: Cholecalciferol (D-3) 1,000 UNIT (25MCG) TABLET PO SCH (08:05)
[2022-05-17] MEDS: Magnesium Oxide 400 MG TABLET PO SCH (08:05)
[2022-05-17] MEDS: LATANOPROST OP SCH (21:09)
[2022-05-17] MEDS: NETARSUDIL OP SCH (21:09)
[2022-05-18] MEDS: *HR* Heparin 5,000 UNIT/ML VIAL SQ SCH ×2 (04:53→16:31)
[2022-05-18] MEDS: amLODIPine 5 MG TABLET PO SCH (09:24)
[2022-05-18] MEDS: Aspirin 81 MG TAB.CHEW PO SCH (09:24)
[2022-05-18] MEDS: Cholecalciferol (D-3) 1,000 UNIT (25MCG) TABLET PO SCH (09:24)
[2022-05-18] MEDS: Thiamine (B-1) 100 MG TABLET PO SCH ×2 (09:24→19:54)
[2022-05-18] MEDS: Magnesium Oxide 400 MG TABLET PO SCH (09:24)
[2022-05-18 11:49] LABS: Calcium 8.5 mg/dL (8.6-10.3); Potassium 4.3 mEq/L (3.5-5.1)
[2022-05-18] MEDS: LATANOPROST OP SCH (19:55)
[2022-05-18] MEDS: NETARSUDIL OP SCH (19:55)
[2022-05-19] MEDS: *HR* Heparin 5,000 UNIT/ML VIAL SQ SCH (04:56)
[2022-05-19 08:11] VITALS: BP 112/69; PULSE 83; TEMP 97.9; O2SAT 95
[2022-05-19] MEDS: Cholecalciferol (D-3) 1,000 UNIT (25MCG) TABLET PO SCH (09:37)
[2022-05-19] MEDS: Magnesium Oxide 400 MG TABLET PO SCH (09:37)
[2022-05-19] MEDS: Thiamine (B-1) 100 MG TABLET PO SCH (09:37)
[2022-05-19] MEDS: amLODIPine 5 MG TABLET PO SCH (09:37)
[2022-05-19] MEDS: Aspirin 81 MG TAB.CHEW PO SCH (09:37)
== END 2022-05-19 11:45 | DRG 695 ==
LOC: EMEROOARM 06:09 → 2ANU 06:09 → SUATTDRO 11:51 → 2ANU 12:13 → SUATTDRO 04-28 12:28 → 2ANU 05-09 15:21
PROVIDERS: ADMIT Internal Medicine; ATTEND Internal Medicine

== ENCOUNTER 2022-07-10 10:38 | Observation (INO) ==
[2022-07-10] MEDS ORDERED: 0.9 % Sodium Chloride 1,000 ML IVC ONE (10:56)
[2022-07-10] MEDS ORDERED: cefTRIAXone 2,000 MG in 0.9 % Sodium Chloride Mini Bag 100 ML IVPB STA (11:00)
[2022-07-10 11:13] LABS: Hematocrit 38.4 % (37.5-50.1); Hemoglobin 12.6 g/dL (12.9-16.9); Mean Corpuscular HGB Conc 32.8 g/dL (31.6-35.5); Mean Corpuscular Hemoglobin 32.1 pg (28.0-33.3); Mean Platelet Volume 10.3 fL (9.4-12.4); Platelet Count 190 K/mcL (140-400); Red Blood Count 3.92 M/mcL (4.19-5.50); Red Cell Distribution Width 14.3 % (11.5-14.5); White Blood Count 11.3 K/mcL (4.3-11.1)
[2022-07-10 11:20] LABS: Amorphous Sediment,Urine Few per hpf (None-Few); Bilirubin,Urine Negative (Negative); Blood,Urine Large (Negative); Clarity,Urine Ex.Turbid (Clear); Color,Urine Yellow (Yellow); Glucose,Urine (UA) Normal (Normal); Ketones,Urine Negative (Negative); Leukocyte Esterase,Urine Large (Negative); Mucus,Urine Moderate per lpf (None-Few); Nitrite,Urine Negative (Negative); PH,Urine 6.5 pH Units (5.0-8.0); Protein,Urine >=300 mg/dL (Neg-Trace); RBC,Urine TNTC per hpf (0-3); Specific Gravity,Urine 1.022 (1.010-1.025); WBC,Urine TNTC per hpf (0-3)
[2022-07-10 11:34] LABS: Alanine Aminotransferase 14 Units/L (7-52); Albumin 3.6 g/dL (3.5-5.7); Albumin/Globulin Ratio 1.4 (1.1-2.2); Alkaline Phosphatase 67 Units/L (34-104); Aspartate Amino Transferase 15 Units/L (13-39); BUN/Creatinine Ratio 17 (6-26); Bilirubin,Direct 0.2 mg/dL (0.0-0.2); Bilirubin,Indirect 0.9 mg/dL (0.0-1.0); Bilirubin,Total 1.1 mg/dL (0.3-1.0); Blood Urea Nitrogen 21 mg/dL (8-23); Calcium 9.1 mg/dL (8.6-10.3); Carbon Dioxide 27 mEq/L (23-29); Chloride 106 mEq/L (98-107); Globulin 2.6 g/dL (2.4-3.5); Glucose 100 mg/dL (70-105); Osmolality,Calculated 291 (280-300); Potassium 4.1 mEq/L (3.5-5.1); Sodium 139 mEq/L (136-145); Total Protein 6.2 g/dL (6.4-8.9); Troponin I < 0.03 ng/mL (< 0.04)
[2022-07-10 11:49] LABS: Influenza A PCR Negative (Negative); Influenza B PCR Negative (Negative); Resp. Syncytial Virus PCR Negative (Negative)
[2022-07-10 11:50] LABS: SARS-CoV-2 by PCR (In House) Positive (Negative)
[2022-07-10] MEDS ORDERED: Ondansetron 4 MG/2 ML VIAL IVP PRN (14:10)
[2022-07-10] MEDS ORDERED: Acetaminophen 325 MG TABLET PO PRN (14:10)
[2022-07-10] MEDS ORDERED: Mag Hydrox/Al Hydrox/Simeth 30 ML UDC PO PRN (14:10)
[2022-07-10] MEDS ORDERED: Naloxone 0.4 MG/ML INJ IVP PRN (14:10)
[2022-07-10] MEDS ORDERED: MOM Conc 10 ML UD.LIQ PO PRN (14:10)
[2022-07-10] MEDS ORDERED: Hyoscyamine SL 0.125 MG TAB.SUBL SL PRN (17:20)
[2022-07-10] MEDS: *HR* Heparin 5,000 UNIT/ML VIAL SQ SCH (17:38)
[2022-07-11 02:55] LABS: Hematocrit 33.1 % (37.5-50.1); Mean Corpuscular Hemoglobin 31.5 pg (28.0-33.3); Mean Corpuscular Volume 98.5 fL (83.0-100.0); Mean Platelet Volume 10.7 fL (9.4-12.4); Platelet Count 170 K/mcL (140-400); Red Blood Count 3.36 M/mcL (4.19-5.50); Red Cell Distribution Width 13.9 % (11.5-14.5); White Blood Count 8.3 K/mcL (4.3-11.1)
[2022-07-11 03:03] LABS: Hemoglobin 10.6 g/dL (12.9-16.9)
[2022-07-11 03:07] VITALS: PULSE 57; O2SAT 98
[2022-07-11 03:14] LABS: Calcium 8.1 mg/dL (8.6-10.3); Magnesium 1.9 mg/dL (1.6-2.6); Potassium 3.9 mEq/L (3.5-5.1)
[2022-07-11] MEDS: *HR* Heparin 5,000 UNIT/ML VIAL SQ SCH (06:45)
[2022-07-11] MEDS ORDERED: BRIMONIDINE TARTRATE LEFT EYE SCH (08:15)
[2022-07-11] MEDS ORDERED: TIMOLOL LEFT EYE SCH (08:15)
[2022-07-11] MEDS ORDERED: [UNRECOGNIZED DRUG - OTHER] LEFT EYE SCH (08:15)
[2022-07-11 08:18] VITALS: BP 156/75; TEMP 98.7
[2022-07-11] MEDS ORDERED: Aspirin Enteric Coated 81 MG Tablet PO SCH (09:00)
[2022-07-11] MEDS ORDERED: NIFEdipine XL (24 HR) 30 MG TAB.ER.24 PO SCH (09:00)
[2022-07-11] MEDS ORDERED: cefTRIAXone 1,000 MG in 0.9 % Sodium Chloride 10 ML IVP SCH (09:00)
[2022-07-11] MEDS ORDERED: Cholecalciferol (D-3) 1,000 UNIT (25MCG) TABLET PO SCH (09:00)
[2022-07-11] MEDS ORDERED: LATANOPROST OP SCH (21:00)
[2022-07-11] MEDS ORDERED: NETARSUDIL MESYLAT OP SCH (21:00)
== END 2022-07-11 10:52 | disposition home health service (06) ==
LOC: EMEROOARM 10:38 → 3ANU 10:38 → SUATTDRO 12:44 → 3ANU 14:47
PROVIDERS: ADMIT Internal Medicine; ATTEND Family Medicine